=== PATIENT | male | born 1980 | race Two or more races ===

== ENCOUNTER 2017-06-11 03:35 | Emergency (ER) | payer SELFPAY ==
[~2017-06-11] VITALS: Ht 172.7 cm; Wt 78.0 kg
[2017-06-11 04:05] VITALS: BP 145/78
== END 2017-06-11 04:06 ==
LOC: EME 03:35 → EDBD 03:35 → EME 04:06
DX: S01.04XA Puncture wound with foreign body of scalp, initial encounter (principal); S09.90XA Unspecified injury of head, initial encounter; Y35.091A Legal intervention involving other firearm discharge, law enforcement official injured, initial encounter; F17.200 Nicotine dependence, unspecified, uncomplicated
CPT/HCPCS: 99281; 99283